=== PATIENT | male | born 1980 | race Two or more races ===

== ENCOUNTER 2019-06-28 17:20 | Emergency (ER) | payer MEDICAID ==
[~2019-06-28] VITALS: Ht 177.8 cm; Wt 77.1 kg
[~2019-06-28 17:20] MED LIST: CARI-277; NOR10T
[2019-06-28 21:11] VITALS: BP 139/97
== END 2019-06-28 21:15 | disposition home or self-care (01) ==
LOC: ER 17:32
DX: F41.9 Anxiety disorder, unspecified (principal); F17.210 Nicotine dependence, cigarettes, uncomplicated; F12.90 Cannabis use, unspecified, uncomplicated; F14.90 Cocaine use, unspecified, uncomplicated; F15.90 Other stimulant use, unspecified, uncomplicated; Z88.0 Allergy status to penicillin; Z79.899 Other long term (current) drug therapy